=== PATIENT | male | born 1965 | race Caucasian/White ===

== ENCOUNTER 2016-10-15 19:59 | Emergency (ER) | payer OTHER ==
--- NOTE | 2016-10-15 20:28 | Emergency Department Record ---
History of Present Illness - General Chief Complaint: Ankle/Foot Injury Stated Complaint: INJURY TO RT ANKLE Time Seen by Provider: 10/15/16 20:23 Source: Patient Mode of Arrival: Wheelchair Limitations: No limitations - History of Present Illness Initial Comments: 50 yo male presents to ED with a CC of injury to the right ankle after stepping of the porch wrong resulting in an inversion injury to the lateral ankle. Patient reports injury occurred about 45 minutes ago, denies other injury on examination. Patient reports hearing a "snap" when the injury occurred. Patient denies health problems at his baseline. Patient denies the need for analgesia on examination. MD Complaint: Ankle injury Onset/Timin -: Minutes(s) Injury: Ankle: Right Type of Injury: Inversion Place: Home Severity scale (1-10): 5 Improves With: Rest Worsens With: Movement, Palpation, Weight bearing Context: Other Associated Symptoms: Snap/pop sensation, Swelling, Able to partially bear weight - Related Data Home Medications Medication Instructions Recorded Confirmed Last Taken Lorazepam [Ativan] 0.5 mg PO Q8H PRN 10/15/16 10/15/16 Unknown Previous Rx's Medication Instructions Recorded Hydrocodone/Acetaminophen [[place] 1 each PO Q6H PRN #10 tablet 10/15/16 7.5-325 Tablet] Allergies Allergy/AdvReac Type Severity Reaction Status Date / Time amoxicillin Allergy Severe HIVES Verified 10/15/16 20:14 Penicillins Allergy Unknown PT UNSURE Verified 10/15/16 20:14 OF REACTION Travel Screening - Travel/Exposure Within Last 30 Days Have you traveled within the last 30 days?: No - Travel Symptoms Symptom Screening: None Review of Systems Constitutional: Denies: Chills, Fever, Malaise, Night sweats Eyes: Denies: Eye discharge, Eye pain ENT: Denies: Congestion, Ear pain, Epistaxis Respiratory: Denies: Cough, Dyspnea Cardiovascular: Denies: Chest pain, Dyspnea on exertion Endocrine: Denies: Fatigue, Heat or cold intolerance Gastrointestinal: Denies: Abdominal pain, Nausea, Vomiting Genitourinary: Denies: Testicular pain, Testicular mass Musculoskeletal: Reports: Arthralgia, Joint swelling. Denies: Back pain, Gout Skin: Denies: Bruising, Change in color Neurological: Denies: Abnormal gait, Confusion, Headache, Seizure Psychiatric: Denies: Anxiety Hematological/Lymphatic: Denies: Anemia, Blood Clots Past Medical History - SOCIAL HISTORY Smoking Status: Former smoker - RESPIRATORY Hx Respiratory Disorders: No - CARDIOVASCULAR Hx Cardio Disorders: Yes Hx Palpitations: Yes Comment:: stress test showed abnormal conduction occas. - NEURO Hx Neuro Disorders: No - GI Hx GI Disorders: No - Hx Genitourinary Disorders: No - ENDOCRINE Hx Endocrine Disorders: No - MUSCULOSKELETAL Hx Musculoskeletal Disorders: No - PSYCH Hx Psych Problems: Yes Hx Anxiety: Yes - HEMATOLOGY/ONCOLOGY Hx Hematology/Oncology Disorders: No Family Medical History Any Significant Family History?: Yes Hx Alcohol Use: Father, Mother Hx Anxiety: Father, Mother Hx Cancer: Mother Hx Depression: Father, Mother Hx Resp Disorders: Father Physical Exam - General General Appearance: Alert, Oriented x3, Cooperative, Mild distress Limitations: No limitations - Head Head exam: Atraumatic, Normocephalic, Normal inspection Head exam detail: negative: Abrasion, Contusion, Carr's sign, General tenderness, Hematoma, Laceration - Eye Eye exam: Normal appearance. negative: Conjunctival injection, Periorbital swelling, Periorbital tenderness, Scleral icterus - ENT Ear exam: negative: Auricular hematoma, Auricular trauma Nasal Exam: negative: Active bleeding, Discharge, Dried blood, Foreign body Mouth exam: negative: Drooling, Laceration, Muffled voice, Tongue elevation - Neck Neck exam: Normal inspection. negative: Meningismus, Tenderness - Respiratory Respiratory exam: Normal lung sounds bilaterally. negative: Rales, Respiratory distress, Rhonchi, Stridor - Cardiovascular Cardiovascular Exam: Regular rate, Normal rhythm, Normal heart sounds - GI/Abdominal GI/Abdominal exam: Soft. negative: Rebound, Rigid, Tenderness - Rectal Rectal exam: Deferred - exam: Deferred - Extremities Extremities exam: Joint swelling, Tenderness, Other (STS to the right ankle laterally, no pain over the foot on examination, achilles intact, no pain over the proximal fibula on examination.). negative: Calf tenderness, Pedal edema - Back Back exam: Denies: CVA tenderness (R), CVA tenderness (L) - Neurological Neurological exam: Alert, Oriented X3. negative: Motor sensory deficit - Psychiatric Psychiatric exam: Normal affect, Normal mood - Skin Skin exam: Normal color. negative: Abrasion Type of lesion: negative: abrasion Course Vital Signs 10/15/16 20:16 Temperature 99.3 F Pulse Rate [ 74 Pulse Ox Probe] Respiratory 20 Rate Blood Pressure 155/92 [Left Arm] Pulse Ox 97 - Reevaluation(s) Reevaluation #1: 10/15/16 21:23 Right ankle: Avulsion fracture distal fibula with STS present. Patient was updated on his radiology results, will place in [place] walking boot with instructions to follow-up with Dr. Fuller as directed in 3-5 days. patietn appears stable for discharge at this time. Disposition Disposition: Discharge Clinical Impression: Fibula fracture Qualifiers: Encounter type: initial encounter Fibula location: lateral malleolus Fracture type: closed Fracture alignment: nondisplaced Laterality: right Qualified Code(s ): S82.64XA - Nondisplaced fracture of lateral malleolus of right fibula, initial encounter for closed fracture Disposition: Home, Self-Care Condition: (2) Stable Instructions: Ankle Fracture (ED) Additional Instructions: Return to ED if your symptoms worsen or if you have any concerns. Follow-up with Dr. Fuller in 3-5 days as directed. [place] as directed. Prescriptions: Hydrocodone/Acetaminophen [[place] 7.5-325 Tablet] 1 each PO Q6H PRN #10 tablet PRN Reason: Pain - Moderate (5-7) Forms: Patient Portal Access Time of Disposition: 21:27 Quality - Quality Measures Quality Measures: N/A - Blood Pressure Screening Does Patient Have Any of the Following: No Blood Pressure Classification: Pre-Hypertensive BP Reading Systolic Measurement: 150 Diastolic Measurement: 86 Screening for High Blood Pressure: < Pre-Hypertensive BP, F/U Documented > [ G8950] Pre-Hypertensive Follow-up Interventions: Referral to alternative/primary care provider.
--- NOTE | 2016-10-16 09:33 | RADIOLOGY REPORT ---
EXAM: RIGHT ANKLE HISTORY: ANKLE PAIN. TECHNIQUE: Three views of the right ankle were obtained. Comparison: None. Encounter: Initial. FINDINGS: Well corticated ossific density near the medial malleolus consistent with sequelae of old trauma. Severe lateral soft tissue swelling. Age indeterminate minimally displaced avulsion fracture of the lateral malleolus. No dislocation. Prominent calcaneal spurs. IMPRESSION: 1. AGE INDETERMINATE AVULSION FRACTURE OF THE LATERAL MALLEOLUS. SEVERE LATERAL SOFT TISSUE SWELLING. 2. OLD MEDIAL MALLEOLAR FRACTURE. PROMINENT CALCANEAL SPURS. JOB NUMBER: [id number] MTDD
== END 2016-10-15 22:07 | disposition home or self-care (01) ==
LOC: ER 19:59
DX: S82.64XA Nondisplaced fracture of lateral malleolus of right fibula, initial encounter for closed fracture (principal); X50.0XXA Overexertion from strenuous movement or load, initial encounter; Y92.009 Unspecified place in unspecified non-institutional (private) residence as the place of occurrence of the external cause
CPT/HCPCS: 99283

== ENCOUNTER 2018-07-23 17:24 | Emergency (ER) | payer OTHER ==
[2018-07-23] MEDS ORDERED: TMP/SMZ 160MG/800MG TAB PO ONE (17:56)
--- NOTE | 2018-07-23 21:21 | Emergency Department Record ---
History of Present Illness - General Chief Complaint: Laceration(s) Stated Complaint: CUT HIS FOOT Time Seen by Provider: 07/23/18 17:56 Source: Patient, Family () Mode of Arrival: Ambulatory Limitations: No limitations - History of Present Illness Initial Commments: Pt to ED with after being barefoot in a ditch with water and stepping on something and laceration the left foot. Dirty water. Washed out at home with peroxide. Last tetanus 2012. Onset/Timin -: Hour(s) Place: Home Context: Accidental - Jose Coma Scale Eye Response: (4) Open spontaneously Motor Response: (6) Obeys commands Verbal Response: (5) Oriented Jose Total: 15 - Related Data Hx Tetanus Toxoid Vaccination: Yes Year of Tetanus Vaccination: unknown-"few years ago" Patient Tetanus UTD (within 5 yrs): No Home Medications Medication Instructions Recorded Confirmed Last Taken Levothyroxine Sodium [Synthroid] 50 mcg PO DAILY 07/23/18 07/23/18 07/23/18 Previous Rx's Medication Instructions Recorded Sulfamethoxazole/Trimethoprim 1 each PO BID 5 Days #10 tablet 07/23/18 [Bactrim Ds Tablet] Allergies Allergy/AdvReac Type Severity Reaction Status Date / Time amoxicillin Allergy Severe HIVES Verified 07/23/18 17:31 Penicillins Allergy Unknown PT UNSURE Verified 07/23/18 17:31 OF REACTION Travel Screening - Travel/Exposure Within Last 30 Days Have you traveled within the last 30 days?: No - Travel/Exposure Within Last Year Have you traveled outside the [place] in the last year?: Yes Location Detail:: [place] - Additonal Travel Details Have you been exposed to anyone with a communicable illness?: No - Travel Symptoms Symptom Screening: None Review of Systems Constitutional: Denies: Chills, Fever, Night sweats Eyes: Denies: Eye discharge, Photophobia ENT: Denies: Congestion Respiratory: Denies: Cough, Hemoptysis Cardiovascular: Denies: Arrhythmia, Chest pain, Syncope Endocrine: Denies: Fatigue Gastrointestinal: Denies: Abdominal pain Musculoskeletal: Reports: As per HPI Skin: Denies: Bruising Neurological: Denies: Headache Psychiatric: Denies: Anxiety Hematological/Lymphatic: Denies: Anemia Past Medical History - SOCIAL HISTORY Smoking Status: Former smoker Alcohol Use: Occasional Drug Use: None - RESPIRATORY Hx Respiratory Disorders: No - CARDIOVASCULAR Hx Cardio Disorders: Yes Hx Palpitations: Yes Comment:: stress test showed abnormal conduction occas. - NEURO Hx Neuro Disorders: No - GI Hx GI Disorders: No - Hx Genitourinary Disorders: No - ENDOCRINE Hx Endocrine Disorders: No - MUSCULOSKELETAL Hx Musculoskeletal Disorders: No - PSYCH Hx Psych Problems: Yes Hx Anxiety: Yes - HEMATOLOGY/ONCOLOGY Hx Hematology/Oncology Disorders: No Family Medical History Any Significant Family History?: Yes Hx Alcohol Use: Father, Mother Hx Anxiety: Father, Mother Hx Cancer: Mother Hx Depression: Father, Mother Hx Resp Disorders: Father Physical Exam - General General Appearance: Alert, Oriented x3, Cooperative, No acute distress - Head Head exam: Atraumatic, Normocephalic - Extremities Extremities exam: Other Image of Feet: 1 - laceration to the weight bearing portion of the left lateral foot. Dirt visualized in the wound. No deep structures seen. Into deep subcut tissue. 3 cm length with irregular margins. - Back Back exam: Reports: Normal inspection - Neurological Neurological exam: Alert, Oriented X3. negative: Motor sensory deficit - Psychiatric Psychiatric exam: Normal affect, Normal mood - Skin Type of lesion: Laceration (left dorsal foot/.) Course Vital Signs 07/23/18 17:34 Temperature 98.9 F Pulse Rate 88 Respiratory 20 Rate Blood Pressure 137/79 Pulse Ox 92 L - Reevaluation(s) Reevaluation #1: 07/23/18 18:12 Seen and lac contaminated with dirty water and mud. Irrigation and particulate material removed. High risk for infection. Pt and aware and will monitor for signs. Antibiotic started in ED. Disposition Disposition: Discharge Clinical Impression: Laceration of plantar aspect of left foot Disposition: Home, Self-Care Condition: (2) Stable Instructions: Laceration (ED) Additional Instructions: Watch closely for redness, swelling, or drainage. If any of these return to the ED. Take your antibiotic twice a day as instructed (Bactrim DS) Keep clean and dry for 48 hours then shower seated for the rest of a week...DO NOT informatics consultant water in shower. Minimize prolonged standing on lacerated area. Prescriptions: Sulfamethoxazole/Trimethoprim [Bactrim Ds Tablet] 1 each PO BID 5 Days #10 tablet Forms: Patient Portal Access Time of Disposition: 18:00 Quality - Quality Measures Quality Measures: N/A - Blood Pressure Screening Does Patient Have Any of the Following: No Blood Pressure Classification: Pre-Hypertensive BP Reading Systolic Measurement: 137 Diastolic Measurement: 79 Screening for High Blood Pressure: < Pre-Hypertensive BP, F/U Documented > [G8950] Pre-Hypertensive Follow-up Interventions: Follow-up with rescreen every year. Laceration - Other - Time Out Informed consent:: Informed consent obtained Confirmed first & last name, , procedure, correct site?: Yes - Location Location of laceration:: Left Laceration located on:: Foot Length of laceration:: 3 Length of laceration:: cm Feet: 1 - 3 cm lac - Clean and Prep Laceration cleaning method:: Cleansed, Copious Irrigation, Extensive Cleaning, Removal of Particular Matter Laceration cleaning agent:: Normal Saline, Wound Cleanser - Local Anesthetic Lidocaine used:: 1% Lidocaine dose:: 3 mL - Medication Medicated for procedure?: No - Procedural Detail Tissue detail:: Torn Foreign body in the wound?: Yes Undermining was preformed?: No Stent applied?: No [place] applied?: No Retention suture(s) applied?: No Skin suture pattern:: Interrupted Suture material/size:: 4-0: Prolene (3 simple interupted. ) Number of skin sutures:: 3 - Post Procedural Detail Complications:: No Procedure Tolerated by Patient:: Well Additional Statement:: Some pain with local due to location on foot.
== END 2018-07-23 18:12 | disposition home or self-care (01) ==
LOC: ER 17:24
DX: S91.312A Laceration without foreign body, left foot, initial encounter (principal); W26.9XXA Contact with unspecified sharp object(s), initial encounter; Z87.891 Personal history of nicotine dependence
CPT/HCPCS: 12002; 99283